=== PATIENT | male | born 2000 | race Caucasian/White ===

== ENCOUNTER 2022-02-12 17:44 | Emergency (ER) | payer BC, SELFPAY ==
--- NOTE | 2022-02-12 17:55 | ED.URI ---
HPI - URI/Sore Throat General Chief Complaint: Nausea/Vomiting/Diarrhea Stated Complaint: Headache,Nausea Time Seen by Provider: 02/12/22 17:55 Source: patient and RN notes reviewed History of Present Illness HPI Narrative: Patient is a 21-year-old male who presents to urgent care with complaints of headache and nausea since last night. Patient states that he initially thought it was his high anxiety but was unable to control his symptoms. Patient states that he does typically get the nausea and vomiting with anxiety but this ?feels different?. Patient states he has had body aches, chills and sore throat. Patient has not taken anything [id number] for his symptoms. Denies any fevers. Denies any abdominal pain. No other acute complaints. No acute distress noted. Patient aware of the plan of care. Some parts of this dictation were generated by voice recognition software and may contain typographical and/or grammatical inaccuracies. Related Data Home Medications Medication Instructions Recorded Confirmed dextroamphetamine-amphetamine ER 10 mg PO DAILY 02/12/22 02/12/22 10 mg 24hr capsule,extend release fluoxetine 20 mg capsule 20 mg PO HS 02/12/22 02/12/22 fluoxetine 40 mg capsule 40 mg PO DAILY 02/12/22 02/12/22 hydroxyzine pamoate 50 mg capsule 50 mg PO TID 02/12/22 02/12/22 Allergies Allergy/AdvReac Type Severity Reaction Status Date / Time No Known Allergies Allergy Verified 02/12/22 18:03 Review of Systems Review of Systems: CONSTITUTIONAL: Reports of chills and sweats EYES: Denies visual changes, redness, or discharge. ENT: Denies rhinorrhea, congestion, otalgia. Reports of sore throat CARDIOVASCULAR: Denies chest pain, palpitations, or edema. RESPIRATORY: Denies cough or dyspnea. GASTROINTESTINAL: Reports of nausea and vomiting GENITOURINARY: Denies dysuria or hematuria. SKIN: Denies rash or itching. MUSCULOSKELETAL: Denies back pain, joint pain, or myalgia. NEUROLOGIC: Denies headache, numbness, or weakness. PSYCHIATRIC: Reports of severe anxiety All other systems reviewed are negative, except as documented in HPI. PMFSH Comments At the time of my signature, I reviewed and agree with the nursing past medical, surgical, social, and family history. There is no relevant family history pertinent to the patient complaint. Exam Narrative: GENERAL: This is a well-nourished, well-developed patient, severely anxious HEAD: normocephalic, atraumatic. EYES: PERRL. Sclera clear/white. Vision is grossly intact. EARS: External ears normal, auditory canals clear and without drainage, TMs normal without perforation. Hearing grossly intact. NOSE: External nose normal with no obvious nasal discharge, nares without redness, no rhinorrhea. THROAT: Pale/Mucous membranes moist, posterior pharynx clear. NECK: Neck supple CARDIOVASCULAR: Regular rate and rhythm without murmurs, gallops, or rubs. RESPIRATORY: Clear to auscultation. Breath sounds equal bilaterally. No wheezes, rales, or rhonchi. GASTROINTESTINAL: Abdomen soft, non-tender, nondistended. Bowel sounds are hypoactive. Persistent dry heaving SKIN: Pale/diaphoretic. good texture and turgor. NEURO: awake, alert, and oriented to person, place and time. There were no obvious focal neurologic abnormalities. EXTREMITIES: No clubbing, cyanosis, or edema. Course Course Level of Care: Express Care Visit Vital Signs Vital signs: Vital Signs Temperature 99.5 F 02/12/22 18:02 Pulse Rate 127 H 02/12/22 18:02 Respiratory Rate 20 02/12/22 18:02 Blood Pressure 170/79 H 02/12/22 18:02 Pulse Oximetry 100 02/12/22 18:02 Temperature 99.5 F 02/12/22 18:02 Pulse Rate 127 H 02/12/22 18:02 Respiratory Rate 20 02/12/22 18:02 Blood Pressure 170/79 H 02/12/22 18:02 Pulse Oximetry 100 02/12/22 18:02 Reviewed- Patient is informed that they may have pre-hypertension or hypertension based on a blood pressure reading in the department. I bouchra
[2022-02-12 18:02] VITALS: BP 170/79; PULSE 127; RESP 20; TEMP 37.5; O2SAT 100
[2022-02-12] MEDS: ONDANSETRON HCL ODT 4 MG TABLET PO (18:16)
== END 2022-02-12 18:33 | disposition home or self-care (01) ==
PROVIDERS: Emergency Provider Nurse Practitioner Family; PCP Physician Assistant
DX: R11.0 Nausea (principal); F41.9 Anxiety disorder, unspecified; F32.A Depression, unspecified; F90.9 Attention-deficit hyperactivity disorder, unspecified type; R03.0 Elevated blood-pressure reading, without diagnosis of hypertension
CPT/HCPCS: 87081; 87804; 87880; 99213; A9270; G0463